=== PATIENT | male | born 1980 | race Caucasian/White ===

== ENCOUNTER 2018-04-13 16:49 | Emergency (ER) | payer SELFPAY ==
--- NOTE | 2018-04-13 16:58 | PDOC ---
History of Present Illness - General Stated Complaint: LACERATION Time Seen by Provider: 04/13/18 16:57
[2018-04-13 17:00] VITALS: BP 136/69; PULSE 65; TEMP 97.7; BMI 27.4
--- NOTE | 2018-04-13 17:00 | PDOC ---
Rapid Medical Evaluation Time Seen by Provider: 04/13/18 16:57 Medical Evaluation: 04/13/18 16:57 I have performed a brief in-person evaluation of the patient The patient presents with a chief complaint of: laceration by saw to right foot. Reports a little pain Denies numbness of toes. Unknown tetanus status Pertinent physical exam findings are: NAD even and unlabored breathing right foot with dressing in place I have ordered the following: xray of right foot and tetanus vaccine The patient will proceed to the ED for further evaluation.
[2018-04-13] MEDS ORDERED: DIPHTH,PERTUSS(ACELL),TET 0.5 ML DISP.SYRIN IM ONE (17:01)
--- NOTE | 2018-04-13 17:29 | PDOC ---
History of Present Illness - General Chief Complaint: Laceration Stated Complaint: LACERATION Time Seen by Provider: 04/13/18 16:57 History Source: Patient Exam Limitations: No Limitations - History of Present Illness Initial Comments: CHIEF COMPLAINT: 38 y/o afebrile male with no significant PMH c/o laceration to right foot. HISTORY OF PRESENT ILLNESS: The patient works in construction. He dropped a saw on his right foot today and sustained a laceration. He is not UTD on tetanus. He can move all of his toes. He denies numbness and tingling. He is able to walk on the affected foot. Vital signs on arrival are within normal limits. REVIEW OF SYSTEMS: GENERAL/CONSTITUTIONAL: No fever/chills. No weakness. No weight change. MUSCULOSKELETAL: No joint or muscle swelling or pain. No neck or back pain. SKIN: +laceration to top of right foot NEUROLOGIC: No headache, vertigo, loss of consciousness, or loss of sensation. PHYSICAL EXAM: VITAL_SIGNS: within normal limits GENERAL_APPEARANCE: alert, cooperative, no obvious discomfort. MENTAL_STATUS: speech clear, oriented X 3, responds appropriately to questions. NEURO: motor intact and sensory intact in injured extremity. EXTREMITIES: good pulse in injured extremity. Full flexion and extension of all toes of right foot. SKIN: 5cm linear laceration base of dorsum side of right 1st tarsal. No active bleeding. No surrounding erythema, edema or obvious deformities. Past History - Past Medical History Allergies/Adverse Reactions: Allergies Allergy/AdvReac Type Severity Reaction Status Date / Time No Known Allergies Allergy Verified 04/13/18 16:58 Home Medications: Ambulatory Orders NK [No Known Home Medication] 04/13/18 COPD: No HTN: Yes ("slightly high - no meds") - Immunization History Immunization Up to Date: No - Suicide/Smoking/Psychosocial Hx Smoking History: Never smoked *Physical Exam - Vital Signs Last Vital Signs Temp Pulse Resp BP Pulse Ox 97.7 F 65 18 136/69 99 04/13/18 16:58 04/13/18 16:58 04/13/18 16:58 04/13/18 16:58 04/13/18 16:58 Procedures - Laceration/Wound Repair Right Dorsal Foot Wound Length: 2.6 to 5.0 cm Wound Explored: clean Wound's Depth, Shape: superficial, linear Irrigated w/ Saline: Yes Betadine Prep: Yes Anesthesia: 1% Lidocaine Amount of Anesthetic (ccs): 5 Wound Debrided: minimal Suture Size/Type: 5:0 Number of Sutures: 13 Deep Layer Suture Size/Type: 4:0 Number of Deep Layer Sutures: 1 Sterile Dressing Applied: Yes Splint Applied: No Medical Decision Making - Medical Decision Making A/P: 38 y/o male with laceration to dorsum of right foot. Plan is as follows: 1. xray right foot 2. Tetanus 3. Lac repair. Xray foot IMPRESSION: No fracture or dislocation. Lac repaired without difficulty by medical student Charles under my supervision. Patient instructed to keep wound clean, dry and covered. Patient instructed to return to the ER in 10-14 days for suture removal. The patient verbalizes understanding of all instructions, has no further questions and is awaiting discharge. *DC/Admit/Observation/Transfer Diagnosis at time of Disposition: Laceration of foot Qualifiers: Encounter type: initial encounter Laterality: right Qualified Code(s): S91.311A - Laceration without foreign body, right foot, initial encounter - Discharge Dispostion Disposition: HOME Condition at time of disposition: Improved - Referrals - Patient Instructions Printed Discharge Instructions: DI for Laceration Repair Additional Instructions: Discharge Instructions: -You received a tetanus shot today; you are up to date for 10 years -Please keep area clean, dry and covered -Return to the ER in 10-14 days to have 13 stitches removed. Instrucciones de descarga: -Has recibido álvaro vacuna contra el ttanos hoy; ests al da por 10 aos -Por favor, mantenga el amaury limpia, seca y cubierta -Vuelva a la jose de emergencias dentro de 10 a 14 ugalde para que le quiten los puntos de sutura. Print Language: KINYARWANDA - Post Discharge Activity
== END 2018-04-13 19:32 | disposition home or self-care (01) ==
LOC: JERFT 16:49
PROC: 0HQMXZZ Repair Right Foot Skin, External Approach (ICD-10-PCS; principal; 2018-04-13)
PROC: 3E0234Z Introduction of Serum, Toxoid and Vaccine into Muscle, Percutaneous Approach (ICD-10-PCS; 2018-04-13)
DX: S91.311A Laceration without foreign body, right foot, initial encounter (principal); W45.8XXA Other foreign body or object entering through skin, initial encounter; Y93.89 Activity, other specified; Y92.9 Unspecified place or not applicable; Y99.0 Civilian activity done for income or pay
CPT/HCPCS: 73630-TC-RT-FY; 90715; 99282-25

== ENCOUNTER 2021-09-02 14:02 | Emergency (ER) | payer SELFPAY ==
[2021-09-02 14:35] VITALS: BP 131/83; PULSE 96; TEMP 98.3; BMI 31.6
[2021-09-03 12:08] LABS: SARS-CoV-2 NAA Not Detected (Not Detected)
== END 2021-09-02 14:55 | disposition home or self-care (01) ==
LOC: JER 14:02
DX: J02.9 Acute pharyngitis, unspecified (principal); R05.9 Cough, unspecified; R09.82 Postnasal drip
CPT/HCPCS: 87651; 87804; 99283-25; C9803; U0003; U0005